=== PATIENT | male | born 1950 | race Caucasian/White ===

== ENCOUNTER → 2020-10-30 | Outpatient (CLI) | payer MEDICARE, OTHER ==
[~2020-10-30] MED LIST: CBD GUMMIES PO; CRANBERRY CONC1 EACH PO; DAILY VALUE1 EACH PO; FISH OIL 1,2001 EAC2 PO; FLOMAX 0.4 MG0.4 MG PO; LOW DOSE ASPIRI81 MG PO; PRAVASTATIN SOD40 MG PO; PROTONIX40 MG PO; ULTRAM50 MG PO; UROZINC PO
[2020-10-30 11:45] LABS: HEMOGLOBIN 13.1 gm/dl (14.0-17.5); RED BLOOD COUNT 4.1 M/UL (4.20-5.50); WHITE BLOOD COUNT 5.3 K/UL (4.5-11.0)
[2020-10-30 12:03] LABS: BUN/CREATININE RATIO 14 (0-10)
== END ==
LOC: OPSV2 10:29
PROVIDERS: Orthopaedic Surgery
DX: Z01.818 Encounter for other preprocedural examination (principal); G56.01 Carpal tunnel syndrome, right upper limb; Z20.822 Contact with and (suspected) exposure to COVID-19
CPT/HCPCS: 36415; 80048; 85025; 93005; U0003

== ENCOUNTER → 2020-11-01 | Day surgery (SDC) | payer MEDICARE, OTHER ==
[~2020-11-01] VITALS: Ht 175.3 cm; Wt 88.0 kg
== END | disposition home or self-care (01) ==
LOC: OR 06:06
DX: G56.01 Carpal tunnel syndrome, right upper limb (principal); M19.031 Primary osteoarthritis, right wrist; M65.351 Trigger finger, right little finger; E78.5 Hyperlipidemia, unspecified; I48.0 Paroxysmal atrial fibrillation; I25.10 Atherosclerotic heart disease of native coronary artery without angina pectoris; K21.9 Gastro-esophageal reflux disease without esophagitis; N40.0 Benign prostatic hyperplasia without lower urinary tract symptoms; Z87.891 Personal history of nicotine dependence; Z88.5 Allergy status to narcotic agent; Z88.2 Allergy status to sulfonamides; Z88.6 Allergy status to analgesic agent; Z88.8 Allergy status to other drugs, medicaments and biological substances; Z79.891 Long term (current) use of opiate analgesic; Z79.82 Long term (current) use of aspirin; Z79.899 Other long term (current) drug therapy
CPT/HCPCS: J0690; J1100; J1885; J2250; J2405; J2704; J3010; J7030; J7120